=== PATIENT | female | born 1960 | race Caucasian/White ===

== ENCOUNTER → 2018-04-02 | Outpatient (CLI) | payer BC ==
[~2018-04-02] MED LIST: CALCA500CH; CYCL10 PO; HYDACE5; HYDSUL200; LEVSOD175; LEVSOD75; NORT25; OXYACE7.5T PO; RISE30; RXCYCL10 PO; RXOXYACE PO
== END | disposition home or self-care (01) ==
LOC: LAB SHORT 17:43 → LAB 17:43
DX: L72.8 Other follicular cysts of the skin and subcutaneous tissue (principal)
CPT/HCPCS: 88304

== ENCOUNTER → 2019-05-21 | Outpatient (CLI) | payer BC ==
[2019-05-21 14:18] LABS: U Amphetamine Screen Not Detected; U Barbituate Screen Not Detected; U Benzodiazapine Screen Not Detected; U Buprenorphine Screen Not Detected; U Cannabinoids Screen Not Detected; U Cocaine Screen Not Detected; U Methadone Screen Not Detected; U Methamphetamine Screen Not Detected; U Opiates Screen DETECTED; U Oxycodone Screen Not Detected; U Phencyclidine Screen Not Detected; U Propoxyphene Screen Not Detected
== END | disposition home or self-care (01) ==
LOC: LAB 12:46 → LAB SHORT 12:46
PROVIDERS: Family Medicine
DX: Z51.81 Encounter for therapeutic drug level monitoring (principal); M54.9 Dorsalgia, unspecified; G89.29 Other chronic pain; Z79.899 Other long term (current) drug therapy
CPT/HCPCS: G0480

== ENCOUNTER 2020-12-31 18:34 | Inpatient (IN) | payer BC ==
[~2020-12-31] VITALS: Ht 167.6 cm; Wt 70.4 kg
[~2020-12-31 18:34] MED LIST changes: -ALBU90OI INH; -AMLO5 PO; -ASPI81CH PO; -ATOR80 PO; -CLOP75 PO; -DULERA 100 MCG-13 GM INH; -DULOXETINE HCL60 M1 PO; -EUTHYROX125 MCG PO; -HYDROCODONE-AC1 EA10 PO; -IBUP400 PO; -METO25 PO; -NICO21TP TOP; -Nitrostat0.3 MG SL; -OMEP20ER PO; -VITAMIN D325 MC3 PO
[2020-12-31 19:18] LABS: BASOPHILS ABSOLUTE AUTO 0.05 K/mm3 (0.00-0.23); BASOPHILS PERCENT AUTO 0 % (0-2); EOSINOPHILS ABSOLUTE AUTO 0.08 K/mm3 (0.00-0.68); EOSINOPHILS PERCENT AUTO 1 % (0-6); Hematocrit 39.9 % (33.0-51.0); Hemoglobin 13.9 g/dL (11.5-16.0); IMMATURE GRAN ABSOLUTE AUTO 0.05 K/mm3 (0.00-0.10); IMMATURE GRAN PERCENT AUTO 0 % (0-1); LYMPHOCYTES ABSOLUTE AUTO 2.19 K/mm3 (0.84-5.20); LYMPHOCYTES PERCENT AUTO 17 % (21-46); MONOCYTES ABSOLUTE AUTO 1.22 K/mm3 (0.16-1.47); MONOCYTES PERCENT AUTO 9 % (4-13); Mean Corpuscular HGB 32.4 pg (26.0-34.0); Mean Corpuscular HGB Conc 34.8 g/dL (31.5-36.5); Mean Corpuscular Volume 93 fL (80-100); Mean Platelet Volume 9.4 fL (9.1-12.4); NEUTROPHILS ABSOLUTE AUTO 9.68 K/mm3 (1.96-9.15); NEUTROPHILS PERCENT AUTO 73 % (41-73); Platelet Count 485 K/mm3 (150-400); RDW Coefficient Variation 12.7 % (11.7-14.2); RDW Standard Deviation 43.2 fL (35.1-46.3); Red Blood Cell Count 4.29 M/mm3 (3.80-5.20); White Blood Cell Count 13.27 K/mm3 (4.00-11.30)
[2020-12-31 19:34] LABS: Alanine Aminotransfer (ALT/SGP 19 U/L (12-78); Albumin, Blood 3.2 g/dL (3.4-5.0); Albumin/Globulin Ratio 0.7 (0.8-1.8); Alk Phos 75 U/L (50-136); Anion Gap 7 mmol/L (6-16); Aspartate Aminotrans (AST/SGOT 68 U/L (12-37); Blood Urea Nitrogen 10 mg/dL (8-24); Bun/Creatinine Ratio 11.8 (12.0-20.0); CO2, Blood 26 mmol/L (21-32); Calcium, Blood 9.2 mg/dL (8.5-10.1); Chloride, Blood 105 mmol/L (98-108); Creatinine, Blood 0.85 mg/dL (0.40-1.00); Globulin, Blood 4.4 g/dL (2.2-4.0); Glomerular Filtration Rate >60 (60-); Glucose, Blood 110 mg/dL (70-99); Potassium, Blood 3.4 mmol/L (3.5-5.5); Sodium, Blood 138 mmol/L (136-145); Total Protein, Blood 7.6 g/dL (6.4-8.2)
[2020-12-31] MEDS ORDERED: HYDROCODONE-AC1 EA10 PO ×2 (20:13)
[2020-12-31] MEDS ORDERED: DULOXETINE HCL60 M1 PO ×2 (20:14)
[2020-12-31] MEDS ORDERED: OMEP20ER PO ×2 (20:16)
[2020-12-31] MEDS ORDERED: EUTHYROX125 MCG PO ×2 (20:17)
[2020-12-31] MEDS ORDERED: AMLO5 PO ×2 (20:18)
[2020-12-31] MEDS ORDERED: VITAMIN D325 MC3 PO ×2 (20:28)
[2020-12-31] MEDS ORDERED: ALBU90OI INH ×2 (20:29)
[2020-12-31] MEDS ORDERED: DULERA 100 MCG-13 GM INH ×2 (20:30)
[2020-12-31] MEDS ORDERED: IBUP400 PO ×2 (20:30)
[2021-01-01 00:41] LABS: International Normalized Ratio 0.98; Prothrombin Time Results 10.3 Sec (9.7-11.5)
[2021-01-01 03:30] LABS: BASOPHILS ABSOLUTE AUTO 0.04 K/mm3 (0.00-0.23); BASOPHILS PERCENT AUTO 0 % (0-2); EOSINOPHILS PERCENT AUTO 1 % (0-6); Hematocrit 39.7 % (33.0-51.0); Hemoglobin 13.8 g/dL (11.5-16.0); IMMATURE GRAN ABSOLUTE AUTO 0.05 K/mm3 (0.00-0.10); IMMATURE GRAN PERCENT AUTO 0 % (0-1); LYMPHOCYTES ABSOLUTE AUTO 2.23 K/mm3 (0.84-5.20); LYMPHOCYTES PERCENT AUTO 20 % (21-46); MONOCYTES ABSOLUTE AUTO 1.12 K/mm3 (0.16-1.47); MONOCYTES PERCENT AUTO 10 % (4-13); Mean Corpuscular HGB 32.6 pg (26.0-34.0); Mean Corpuscular HGB Conc 34.8 g/dL (31.5-36.5); Mean Corpuscular Volume 94 fL (80-100); NEUTROPHILS PERCENT AUTO 69 % (41-73); Platelet Count 393 K/mm3 (150-400); RDW Coefficient Variation 12.7 % (11.7-14.2); RDW Standard Deviation 43.5 fL (35.1-46.3); Red Blood Cell Count 4.23 M/mm3 (3.80-5.20); White Blood Cell Count 11.44 K/mm3 (4.00-11.30)
[2021-01-01 03:52] LABS: Alanine Aminotransfer (ALT/SGP 17 U/L (12-78); Albumin, Blood 2.8 g/dL (3.4-5.0); Albumin/Globulin Ratio 0.7 (0.8-1.8); Alk Phos 73 U/L (50-136); Anion Gap 8 mmol/L (6-16); Aspartate Aminotrans (AST/SGOT 51 U/L (12-37); Bilirubin, Total 1.1 mg/dL (0.1-1.0); Blood Urea Nitrogen 11 mg/dL (8-24); Bun/Creatinine Ratio 15.1 (12.0-20.0); CO2, Blood 25 mmol/L (21-32); Calcium, Blood 8.9 mg/dL (8.5-10.1); Chloride, Blood 107 mmol/L (98-108); Creatinine, Blood 0.73 mg/dL (0.40-1.00); Globulin, Blood 3.9 g/dL (2.2-4.0); Glomerular Filtration Rate >60 (60-); Glucose, Blood 111 mg/dL (70-99); Potassium, Blood 3.5 mmol/L (3.5-5.5); Sodium, Blood 140 mmol/L (136-145); Total Protein, Blood 6.7 g/dL (6.4-8.2)
[2021-01-01 04:47] LABS: SARS-Cov-2 (COVID-19) PCR, MMC POSITIVE (NEGATIVE)
--- NOTE | 2021-01-01 10:26 | NUR ---
UPDATE AT 1010, SAMMIE FROM PHARMACY CONTACTED THIS RN ABOUT THE APTT VALUE OF 37.9. SAMMIE INFORME DTHIOS RN THAT A BLSLUS OF HEPARIN AND HEPARIN GTT INCREASED HAS BEEN ORDERED. THE PT TROPONIN LEVEL ALSO CAME BACK FROM LAB READING 6.380, CHARGE NURSE LENORE WAS NOTIFIED.
--- NOTE | 2021-01-01 12:58 | NUR ---
PT PULLED OUT IV THAT WAS PLACED IN RIGHT WRIST. THIS IV WAS NOT CHARTED. THE IV WAS INTACT AFTER PT PULLING OUT.
--- NOTE | 2021-01-01 16:34 | NUR ---
PT A/O X4 AND COOPERATIVE OF CARE. VSS T/O SHIFT WITH O2 SATS >95% ON ROOM AIR. PT REPORTED CHEST PRESSURE WHEN LYING ON THEIR SIDE, NO CHEST PAIN REPORTED. PT TROPONIN LEVELS TRENDING DOWN FROM 9.990 TO 5.060. PT APTT WAS 37.9, PHARMACY ORDERED ABOLUS OF HEPARIN AND INCREASED HEPARIN GTT TO 15, MEDS GIVEN PER EMAR. PT WAS ABLE TO GET UP TO BEDSIDE COMMODE WITH MINIMAL ASSISTANCE. NO SOB REPORTED T/O SHIFT.
[2021-01-02 03:48] LABS: Hematocrit 33.9 % (33.0-51.0); Hemoglobin 11.3 g/dL (11.5-16.0); Mean Corpuscular HGB 32.5 pg (26.0-34.0); Mean Corpuscular HGB Conc 33.3 g/dL (31.5-36.5); Mean Corpuscular Volume 97 fL (80-100); Mean Platelet Volume 9.3 fL (9.1-12.4); Platelet Count 361 K/mm3 (150-400); RDW Coefficient Variation 12.6 % (11.7-14.2); RDW Standard Deviation 45.1 fL (35.1-46.3); Red Blood Cell Count 3.48 M/mm3 (3.80-5.20); White Blood Cell Count 9.02 K/mm3 (4.00-11.30)
--- NOTE | 2021-01-02 04:00 | NUR ---
ASSUMPTION OF CARE PATIENT TRANSFERRED FROM PCU 3 WITH BELONGINGS. PATIENT ORIENTED TO NEW ROOM. DENIES ANY NEEDS AT THIS TIME.
[2021-01-02 04:12] LABS: Anion Gap 8 mmol/L (6-16); Blood Urea Nitrogen 11 mg/dL (8-24); Bun/Creatinine Ratio 14.7 (12.0-20.0); CHOL/HDL RATIO 3.8; CO2, Blood 23 mmol/L (21-32); Calcium, Blood 8.2 mg/dL (8.5-10.1); Chloride, Blood 108 mmol/L (98-108); Cholesterol 121 mg/dL (50-200); Creatinine, Blood 0.75 mg/dL (0.40-1.00); Glomerular Filtration Rate >60 (60-); Glucose, Blood 116 mg/dL (70-99); HDL Cholesterol 32 mg/dL (>39); Low Density Lipoprotein Chol 63 mg/dL (0-110); Potassium, Blood 3.7 mmol/L (3.5-5.5); Sodium, Blood 139 mmol/L (136-145); Triglycerides 131 mg/dL (30-160); Very Low Density Lipoprot Chol 26 mg/dL (6-32)
--- NOTE | 2021-01-02 05:34 | NUR ---
SHIFT SUMMARY NO SIGNIFICANT CHANGES TO PATIENT'S STATUS SINCE MOVING TO PCU 11. ALERT AND ORIENTED X4. VSS. DENIES CHEST PAIN OR PRESSURE WHEN SITTING UP, REPORTS MILD PRESSURE WHEN LAYING DOWN OR ON HER SIDE. RADIAL AND FEMORAL SITE DRESSINGS REMAIN C/D/I. NO OTHER SIGNIFICANT CHANGES, WILL REPORT TO DAY SHIFT RN.
[2021-01-02] MEDS ORDERED: ASPI81CH PO ×2 (14:03)
[2021-01-02] MEDS ORDERED: CLOP75 PO ×2 (14:05)
[2021-01-02] MEDS ORDERED: ATOR80 PO ×2 (14:05)
[2021-01-02] MEDS ORDERED: METO25 PO ×2 (14:06)
[2021-01-02] MEDS ORDERED: NICO21TP TOP ×2 (14:07)
[2021-01-02] MEDS ORDERED: Nitrostat0.3 MG SL ×2 (14:09)
--- NOTE | 2021-01-02 16:02 | NUR ---
PATIENT AMBULATORY, DISCHARGED HOME. SEE EDUCATION DOCUMENTATION. NO S/S CARDIOPULMONARY DISTRESS OBSERVED OR NOTED.
== END 2021-01-02 15:30 | disposition home or self-care (01) | DRG 280 ==
LOC: ER 18:34 → PCU 18:35 → ER 20:48 → PCU 20:48
PROVIDERS: Emergency Medicine; Internal Medicine Cardiovascular Disease; ADMIT Internal Medicine
PROC: 4A023N7 Measurement of Cardiac Sampling and Pressure, Left Heart, Percutaneous Approach (ICD-10-PCS; principal; 2021-01-01)
PROC: B2111ZZ Fluoroscopy of Multiple Coronary Arteries using Low Osmolar Contrast (ICD-10-PCS; 2021-01-01)
PROC: 4A033BC Measurement of Arterial Pressure, Coronary, Percutaneous Approach (ICD-10-PCS; 2021-01-01)
PROC: 3E02340 Introduction of Influenza Vaccine into Muscle, Percutaneous Approach (ICD-10-PCS; 2021-01-01)
DX: I21.4 Non-ST elevation (NSTEMI) myocardial infarction (principal); U07.1 COVID-19; I25.10 Atherosclerotic heart disease of native coronary artery without angina pectoris; F17.210 Nicotine dependence, cigarettes, uncomplicated; I45.10 Unspecified right bundle-branch block; J44.9 Chronic obstructive pulmonary disease, unspecified; Z23 Encounter for immunization; E87.6 Hypokalemia; M79.7 Fibromyalgia; M32.9 Systemic lupus erythematosus, unspecified; E03.9 Hypothyroidism, unspecified; M81.0 Age-related osteoporosis without current pathological fracture; I11.9 Hypertensive heart disease without heart failure; K21.9 Gastro-esophageal reflux disease without esophagitis; Z79.899 Other long term (current) drug therapy; Z79.83 Long term (current) use of bisphosphonates; Z79.51 Long term (current) use of inhaled steroids
CPT/HCPCS: 36415; 71045; 71260; 80048; 80053; 80061; 83036; 83735; 84484; 85025; 85027; 85347; 85610; 85730; 90686; 93005; 93010; 93306; 93454; 93571; 94640; 94664; 94760; 96374; 99152; 99153; 99285-25; A9270; C1760; C1769; C1894; G0008; G0378; J1644; J2250; J3010; J7030; J7040; J7050; Q9967; U0004

== ENCOUNTER → 2020-12-31 | Outpatient (CLI) | payer BC ==
[~2020-12-31] MED LIST changes: +ALBU90OI INH; +AMLO5 PO; +ASPI81CH PO; +ATOR80 PO; +CLOP75 PO; +DULERA 100 MCG-13 GM INH; +DULOXETINE HCL60 M1 PO; +EUTHYROX125 MCG PO; -HYDACE5; +HYDROCODONE-AC1 EA10 PO; +IBUP400 PO; -LEVSOD175; -LEVSOD75; +METO25 PO; +NICO21TP TOP; +Nitrostat0.3 MG SL; +OMEP20ER PO; +VITAMIN D325 MC3 PO
[2020-12-31 17:35] LABS: BASOPHILS ABSOLUTE AUTO 0.03 K/mm3 (0.00-0.23); BASOPHILS PERCENT AUTO 0 % (0-2); EOSINOPHILS ABSOLUTE AUTO 0.07 K/mm3 (0.00-0.68); EOSINOPHILS PERCENT AUTO 1 % (0-6); Hematocrit 37.6 % (33.0-51.0); Hemoglobin 13.2 g/dL (11.5-16.0); IMMATURE GRAN ABSOLUTE AUTO 0.06 K/mm3 (0.00-0.10); IMMATURE GRAN PERCENT AUTO 1 % (0-1); LYMPHOCYTES ABSOLUTE AUTO 1.93 K/mm3 (0.84-5.20); LYMPHOCYTES PERCENT AUTO 15 % (21-46); MONOCYTES ABSOLUTE AUTO 1.07 K/mm3 (0.16-1.47); MONOCYTES PERCENT AUTO 8 % (4-13); Mean Corpuscular HGB 32.5 pg (26.0-34.0); Mean Corpuscular HGB Conc 35.1 g/dL (31.5-36.5); Mean Corpuscular Volume 93 fL (80-100); Mean Platelet Volume 8.9 fL (9.1-12.4); NEUTROPHILS ABSOLUTE AUTO 9.76 K/mm3 (1.96-9.15); NEUTROPHILS PERCENT AUTO 76 % (41-73); Platelet Count 435 K/mm3 (150-400); RDW Coefficient Variation 12.8 % (11.7-14.2); RDW Standard Deviation 43.5 fL (35.1-46.3); Red Blood Cell Count 4.06 M/mm3 (3.80-5.20); White Blood Cell Count 12.92 K/mm3 (4.00-11.30)
[2020-12-31 18:01] LABS: Alanine Aminotransfer (ALT/SGP 20 U/L (12-78); Albumin, Blood 3.3 g/dL (3.4-5.0); Albumin/Globulin Ratio 0.8 (0.8-1.8); Alk Phos 74 U/L (40-126); Anion Gap 13 mmol/L (6-16); Aspartate Aminotrans (AST/SGOT 59 U/L (12-37); Bilirubin, Total 0.8 mg/dL (0.1-1.0); Blood Urea Nitrogen 10 mg/dL (8-24); Bun/Creatinine Ratio 10.9 (12.0-20.0); CO2, Blood 25 mmol/L (21-32); Calcium, Blood 8.8 mg/dL (8.5-10.1); Chloride, Blood 101 mmol/L (98-108); Creatinine, Blood 0.92 mg/dL (0.40-1.00); Globulin, Blood 3.9 g/dL (2.2-4.0); Glomerular Filtration Rate >60 (60-); Glucose, Blood 111 mg/dL (70-99); Potassium, Blood 3.2 mmol/L (3.5-5.5); Sodium, Blood 139 mmol/L (136-145); Thyroid Stimulating Hormone 2.254 uIU/mL (0.360-4.800); Total Protein, Blood 7.2 g/dL (6.4-8.2)
[2020-12-31 18:10] LABS: Troponin I 9.405 ng/mL (0.000-0.040)
== END | disposition home or self-care (01) ==
LOC: LAB SHORT 17:30 → LAB 17:30
PROVIDERS: Physician Assistant Surgical
DX: R07.9 Chest pain, unspecified (principal); R53.83 Other fatigue
CPT/HCPCS: 80053; 83880; 84443; 84484; 85025; 85379

== ENCOUNTER → 2023-11-30 | Outpatient (CLI) | payer OTHER ==
[~2023-11-30] MED LIST changes: +ALBU90OI INH; +AMLO5 PO; +ASPI81CH PO; +ATOR80 PO; +CLOP75 PO; +DULERA 100 MCG-13 GM INH; +DULOXETINE HCL60 M1 PO; +EUTHYROX125 MCG PO; +HYDROCODONE-AC1 EA10 PO; +IBUP400 PO; +METO25 PO; +NICO21TP TOP; +Nitrostat0.3 MG SL; +OMEP20ER PO; +VITAMIN D325 MC3 PO
[2023-11-30 14:14] LABS: Stool Occult Bld Immuno 1 Negative (NEGATIVE)
== END ==
LOC: LAB SHORT 12:43 → LAB 12:43
PROVIDERS: Family Medicine
DX: Z12.11 Encounter for screening for malignant neoplasm of colon (principal)
CPT/HCPCS: G0328